=== PATIENT | female | born 1985 | race Asian ===

== ENCOUNTER → 2017-04-25 | Outpatient (CLI) | payer BC ==
[~2017-04-25] MED LIST: LEVO25TA5 PO; PRENTAB26 PO
[2017-04-25 10:46] LABS: BASO % 0.5 %; BASO ABS # 0.03 K/uL (0-0.2); COMPLETE YES; EOS % 2.2 %; HEMATOCRIT 40.3 % (37-47); IG% 0.3 %; LYMPH % 31.8 %; LYMPH ABS # 2.07 K/uL (1.2-3.4); MEAN CELL VOLUME 90.6 fL (80-100); MEAN CORPUSCULAR HEMOGLOBIN 30.8 pg (25-34); MEAN PLATELET VOLUME 8.9 fL (7.4-10.4); MONO % 6.3 %; NEUT % 58.9 %; PLATELET COUNT 345 K/uL (130-400); RED BLOOD COUNT 4.45 M/uL (4.2-5.4)
[2017-04-25 10:57] LABS: ALT/SGPT 41 U/L (12-78); BLOOD UREA NITROGEN 13 mg/dl (7-18); BUN/CREATININE RATIO 18.2 (10-20); CALCIUM 8.5 mg/dl (8.5-10.1); CARBON DIOXIDE 29 mmol/L (21-32); CHLORIDE 103 mmol/L (98-107); CHOLESTEROL 134 mg/dl (0-200); GLUCOSE 92 mg/dl (70-99); SODIUM 140 mmol/L (136-145)
[2017-04-25 11:08] LABS: ALKALINE PHOSPHATASE 67 U/L (45-117); AST/SGOT 20 U/L (15-37); CHOLESTEROL/HDL RATIO 3.5; HDL CHOLESTEROL 38 mg/dl; LDL CHOLESTEROL CALCULATED 71 mg/dl; TRIGLYCERIDES 123 mg/dl (0-150); VERY LOW DENSITY LIPOPROT CALC 25 mg/dl
== END | disposition home or self-care (01) ==
LOC: C.LABBC 08:53
PROVIDERS: ATTEND Internal Medicine
DX: Z00.00 Encounter for general adult medical examination without abnormal findings (principal); O99.280 Endocrine, nutritional and metabolic diseases complicating pregnancy, unspecified trimester; R53.83 Other fatigue

== ENCOUNTER 2019-05-02 04:46 | Inpatient (IN) ==
[2019-05-02] MEDS ORDERED: LACTATED RINGER'S 1,000 ML IV PRN (05:17)
[2019-05-02] MEDS ORDERED: OXYTOCIN 30 UNITS/500 ML BAG IV PRN ×2 (05:17→08:09)
[2019-05-02 05:39] LABS: Hematocrit (blood only) 38.6 % (37-47); Hemoglobin 13.6 g/dL (12.0-16.0); Mean Corpuscular Hemoglobin 32.4 pg (25-34); Mean Corpuscular Volume 91.9 fL (80-100); Mean Platelet Volume 8.8 fL (7.4-10.4); Platelet Count 243 K/uL (130-400); RDW Coefficient of Variation 12.8 % (11.5-14.5); RDW Standard Deviation 42.9 fL (36.4-46.3); White Blood Count 9.36 K/uL (4.8-10.8)
[2019-05-02 05:44] LABS: Mean Corpuscular Hgb Conc 35.2 g/dL (32-36)
--- NOTE | 2019-05-02 07:31 | History & Physical Report ---
Date of Service May 02, 2019 Assessment & Plan (1) 40 weeks gestation of : (2) Active labor at term: (3) Supervision of elderly multigravida: she has been admitted. will begin 2nd stage. fhts categ 1. History of Present Illness Chief Complaint: walked in with regular ctx Primary Care Provider: NO PCP 33yo at 40+wls ega presents to L&D with above cc. Came without calling, was 6cm with ctx 3-5min. Breathing with ctx currently. no rom. +fm pnc c/b 1. h/o hypothyroid, no meds 2. ama pnl rh pos, rubella immune, gbs neg obh: vavd c/b shoulder dystocia gynh: no stds, normal pap smears pmh: h/o hypothyroidism psh: dental surgery Allergies Allergy/AdvReac Type Severity Reaction Status Date / Time No Known Allergies Allergy Verified 05/02/19 05:19 Home Medications Home Medications Medication Instructions Recorded Confirmed Type prenat.vits,sang,msd-rkib-iqxta 1 tab PO DAILY 01/22/19 05/02/19 History Patient History Social History (Updated 01/22/19 @ 09:55 by Ana Leung) Preferred Language: Nigerian Visual Impairment: No Limitations Beliefs That Will Affect Care: None marital status: Current Living Situation: Spouse current occupational status: employed current occupation: senior construction project manager Feels Safe at Home: Yes Safety Concerns: Feels Safe At This Time Smoking Status: Never smoker Hx Alcohol Use: No Hx Substance Use: No Dental Care, Regularly: Yes Physical Activity Frequency: 1-2 Times per Week Review of Systems as per Subjective / HPI Physical Exam Constitutional: WD/WN, vitals as above Respiratory: normal respiratory effort, lungs clear to auscultation Cardiovascular: Rate/Rhythm: regular rate and regular rhythm Gastrointestinal (Abdomen): soft gravid nt Neurologic: grossly normal Psychiatric: Orientation: alert and oriented x 3 breathing with ctx, crying in pain Genitourinary: Manual OB Exam: + cervical dilation 10 cm, + cervical effacement 100%, + station 0 and + amniotic fluid (arom) clear OB Exam Monitor Tracing: + external FHT monitor used (120 mod variability), + category I and + normal FHT variability Results & Data Vital Signs (Past 12 Hours) Vital Signs Temp Pulse Resp BP 05/02/19 07:11 18 05/02/19 06:10 98.2 F 20 05/02/19 05:21 97.5 F L 77 18 114/64 05/02/19 05:11 77 114/64 Code Status & VTE Plan VTE Prophylaxis Plan VTE Prophylaxis will be ordered: No
--- NOTE | 2019-05-02 08:04 | Delivery Summary ---
Vaginal Delivery Summary Date of Service May 02, 2019 The patient dilated to complete and pushed to deliver a viable female infant Ap gars 9 and 10 via over partial 3rd degree perineal laceration. Mouth and nose bulb suctioned at perineum after anterior shoulder delivered. Remainder of shoulders and body delivered with ease. was vigorous and crying at . Cord clamped at 30 seconds of life and infant to maternal abdomen where the cord was then doubly clamped and cut. Placenta delivered spontaneously and intact, three-vessel cord. Hemostasis achieved with dilute pitocin and uterine massage. Cervix and sulci intact. Laceration repaired in layers with 2-0 and 3-0 vicryl after 1% local lidocaine anesthesia. EBL 300 cc. Mother and baby stable recovery.
[2019-05-02] MEDS ORDERED: IBUPROFEN 600 MG TAB PO PRN (08:09)
[2019-05-02] MEDS ORDERED: ACETAMINOPHEN 325 MG TAB PO PRN (08:09)
[2019-05-02] MEDS ORDERED: OXYCODONE/ACETAMINOPHEN 5mg/325mg TAB PO PRN (08:09)
[2019-05-02] MEDS ORDERED: SUPERCREAM 0.870% 15 GM JAR EXT PRN (08:14)
[2019-05-02] MEDS ORDERED: DIPHTHERIA/TETANUS/PERTUSSIS 0.5 ML SYR/VIAL IM ONE (08:14)
[2019-05-02] MEDS ORDERED: HYDROCORTISONE ACETATE 25 MG SUPP PR PRN (08:14)
[2019-05-02] MEDS ORDERED: BENZOCAINE 20% AER SPR 82.5 GM CAN EXT PRN (08:14)
[2019-05-02] MEDS ORDERED: OXYTOCIN 20 UNITS in LACTATED RINGER'S 1,000 ML IV SCH (08:15)
[2019-05-02] MEDS ORDERED: DOCUSATE SODIUM 100 MG CAP ONE (19:26)
[2019-05-02] MEDS: DOCUSATE SODIUM 100 MG CAP PO SCH (19:32)
--- NOTE | 2019-05-03 06:06 | Obstetrical Progress Note ---
Date of Service May 03, 2019 Assessment & Plan (1) Status post vaginal delivery: Brendan is a 33 yo on PPD1 after a at 40 weeks - GBS -, Blood Type B+, Rubella immune -Vitals reviewed and WNL (Tmax 36.8) -patient is doing clinically well Continue routine post- care - After discharge will have [address] Betancourt. Supervising Physician Co-Signing Physician Notes Resident Physician Supervision Note: I interviewed and examined the patient. Discussed with Dr. Vaca and agree with findings and plan as documented in the note. Any exceptions or clarifications are listed here: [None] Documented By: Keren Beck MD, FACOG Subjective Ambulation: ambulating normally Voiding: no voiding problems Passing Gas:: Yes Diet Tolerance:: regular diet Lochia:: moderate Feeding Type:: breast feeding Review of Systems Constitutional: no fever, no chills and no sweats Eyes: no worsening vision Respiratory: no cough and no dyspnea Cardiovascular: no chest pain, no palpitations, no edema and no calf pain Gastrointestinal: no nausea and no vomiting Genitourinary: no dysuria and no urinary frequency Neurologic: no headache(s) Physical Exam Constitutional: WD/WN, vitals as above no acute distress Respiratory: normal respiratory effort, lungs clear to auscultation does not use accessory muscles Auscultation: no crackles, no rales, no rhonchi, no wheezes and no pleural rub Cardiovascular: Rate/Rhythm: regular rate and regular rhythm Heart Sounds: normal S1 and normal S2; no gallop, no murmur and no cardiac rub Extremities: no calf tenderness and no pedal edema Gastrointestinal (Abdomen): Inspection/Auscultation: normal bowel sounds; abdomen not distended Percussion/Palpation: abdomen soft Genitourinary: Uterus: fundus firm, palpable 1 cm below the umbilicus Results & Data Vital Signs (Past 12 Hours) Vital Signs Temp Pulse Resp BP 05/03/19 04:20 36.4 C L 84 18 99/61 L 05/02/19 23:15 36.7 C 92 H 18 100/63 05/02/19 19:20 36.6 C 102 H 18 98/58 L Resident Activity Tracking Resident Involvement: Resident Care Provided Care Provided: OB Delivery
[2019-05-03] MEDS: DOCUSATE SODIUM 100 MG CAP PO SCH ×2 (08:25→20:34)
--- NOTE | 2019-05-04 05:48 | Obstetrical Progress Note ---
Date of Service May 04, 2019 Assessment & Plan (1) Status post vaginal delivery: Brendan is a 33 yo on PPD2 after a at 40 weeks - GBS -, Blood Type B+, Rubella immune -Vitals reviewed and WNL (Tmax 36.8) -patient is doing clinically well Reviewed discharge instructions. ready for d/c - After discharge will have [address] Betancourt. Supervising Physician Co-Signing Physician Notes Resident Physician Supervision Note: I was present with Dr. Vaca during the history and exam. I discussed the case with the resident and agree with the findings and plan as documented in the no te. Any exceptions or clarifications are listed here: PPD#2 doing well. DC home, DC instructions reviewed. Documented By: Lana Anguiano, Subjective Ambulation: ambulating normally Voiding: no voiding problems Passing Gas:: Yes Diet Tolerance:: regular diet Lochia:: moderate Feeding Type:: breast feeding Review of Systems Constitutional: no fever, no chills and no sweats Eyes: no worsening vision Respiratory: no cough and no dyspnea Cardiovascular: no chest pain, no palpitations, no edema and no calf pain Gastrointestinal: no nausea and no vomiting Genitourinary: no dysuria and no urinary frequency Neurologic: no headache(s) Physical Exam Constitutional: WD/WN, vitals as above no acute distress Respiratory: normal respiratory effort, lungs clear to auscultation does not use accessory muscles Auscultation: no crackles, no rales, no rhonchi, no wheezes and no pleural rub Cardiovascular: Rate/Rhythm: regular rate and regular rhythm Heart Sounds: normal S1 and normal S2; no gallop, no murmur and no cardiac rub Extremities: no calf tenderness and no pedal edema Gastrointestinal (Abdomen): Inspection/Auscultation: normal bowel sounds; abdomen not distended Percussion/Palpation: abdomen soft Genitourinary: Uterus: fundus firm, palpable 2 cm below the umbilicus Results & Data Vital Signs (Past 12 Hours) Vital Signs Temp Pulse Resp BP 05/03/19 23:10 36.6 C 67 18 99/64 L Resident Activity Tracking Resident Involvement: Resident Care Provided Care Provided: OB Delivery
[2019-05-04] MEDS: DOCUSATE SODIUM 100 MG CAP PO SCH (08:11)
== END 2019-05-04 11:10 | disposition home or self-care (01) | DRG 807 ==
LOC: OPB 04:46 → 4S1 04:51 → 4S2 10:50